=== PATIENT | female | born 2000 | race African-American/Black ===

== ENCOUNTER 2023-10-18 18:27 | Emergency (ER) | payer MEDICAID ==
[~2023-10-18] VITALS: Ht 162.6 cm; Wt 60.0 kg
[2023-10-18 18:43] VITALS: O2SAT 97
[2023-10-18] MEDS: LIDOCAINE HCL/PF 1% 10 MG/ML 5ML VIAL INFIL ONE (22:15)
[2023-10-18] MEDS: BACITRACIN ZINC OINT UDPKT TOP ONE (22:15)
[2023-10-19] MEDS ORDERED: CEPH500C2 MT (00:02)
[2023-10-19] MEDS ORDERED: BO1 TP (00:02)
[2023-10-19 00:05] VITALS: BP 105/54; PULSE 72; RESP 16; TEMP 98.2
== END 2023-10-19 00:18 | disposition home or self-care (01) ==
LOC: ER 18:27
DX: S91.111A Laceration without foreign body of right great toe without damage to nail, initial encounter (principal); X58.XXXA Exposure to other specified factors, initial encounter; Y93.89 Activity, other specified; Y92.89 Other specified places as the place of occurrence of the external cause; Y99.8 Other external cause status
CPT/HCPCS: 99283; 73660; 12001; J3490